=== PATIENT | male | born 1965 | race Caucasian/White ===

== ENCOUNTER 2018-11-24 09:10 | Outpatient (CLI) | payer OTHER ==
--- NOTE | 2018-11-24 09:47 | RAD ---
Lumbar spine: 4 views INDICATIONS: Intervertebral disc disorder with radiculopathy. FINDINGS: Moderate degenerative changes. Loss of disc space at L3-4, L4-5, and L5-S1. Prominent anter ior and lateral osteophytes. Posterior alignment is maintained. No spondylolisthesis. Moderate facet hypertrophy. There are 3 rounded calcific densities overlying the right upper quadrant consistent with gallstones. IMPRESSION: Moderate to severe degenerative changes. Evidence of cholelithiasis.
== END 2018-11-24 09:11 | disposition home or self-care (01) ==
LOC: RAD 09:10
PROVIDERS: ATTEND Specialist
DX: M51.16 Intervertebral disc disorders with radiculopathy, lumbar region (principal); K80.20 Calculus of gallbladder without cholecystitis without obstruction; M47.26 Other spondylosis with radiculopathy, lumbar region
CPT/HCPCS: 72100

== ENCOUNTER 2018-12-23 07:24 | Outpatient (CLI) | payer OTHER ==
--- NOTE | 2018-12-23 08:55 | RAD ---
SINGLE LEE VIEW OF SKULL: Date: 12/23/18 HISTORY: MRI clearance. Previous metal in eye. FINDINGS: Single Lee view of the skull shows no evidence of radiopaque foreign body. The visualized paranasa l sinuses are well aerated. IMPRESSION: No radiopaque foreign body identified. POS: [facility]
--- NOTE | 2018-12-23 10:16 | MRI ---
Exam: LUMBAR SPINE MRI WITH AND WITHOUT CONTRAST: HISTORY: Status post laminectomy. Laminectomy syndrome. Persistent low back pain with left hip and le g pain. Numbness. COMPARISON: None. FINDINGS: Appropriate T1 marrow signal intensity of lumbar vertebra. Lumbar spine vertebral body height is main tained. No fracture. Straightening of normal lumbar lordosis is noted. No significant STIR hyperintensity to suggest vertebral body edema or ligamentous injury. Appropriate signal intensity of visualized paraspinal muscles. Appropriate signal intensity of visual ized solid organs Conus medullaris terminates at the inferior aspect of T12. There are type II Modic changes at the L3-L4 and L4-L5 levels. Postcontrast images do not demonstrate any abnormal enhancement with regards to the vertebral bodies. There is no abnormal enhancement with regards to the cauda equina and conus medullaris. 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 T12-L1: Adequate disc hydration. Minimal ligamentum flavum thickening and facet atrophy. No significa nt central canal stenosis. Neural foramina are patent. L1-L2: Disc desiccation. No significant loss of disc space height. Left and right paracentral disc bu lges along with ligamentum flavum thickening result in mild central canal stenosis. Right neural foramen is patent. Mild left foraminal narrowing. L2-L3: Desiccation with mild loss of disc space height. Generalized disc bulge, ligamentum flavum thi ckening and facet hypertrophy do not cause any significant central canal stenosis. Mild encroachment upon both subarticular zones with disc material abutting but not obscuring either rhonda sing L3 nerve root. Mild bilateral foraminal narrowing. L3-L4: Desiccation with moderate loss of disc space height. There is a left hemilaminectomy defect. G eneralized disc bulge results in mild to moderate central canal stenosis. Mass effect without obscuration of bilateral traversing L4 nerve roots. Moderate to severe right and moderate left neural foraminal narrowing. L4-L5: Desiccation with severe loss of disc space height. There is an inferior central and left subar ticular disc protrusion. Left hemilaminectomy defect is identified. There is some enhancing scar tissue at the laminectomy defect site. There is asymmetric enhancement in the left subarticular zone. There is evidence of disc material with associated cystic degeneration in this left subarticular zone. There is complete obscuration of the traversing left L5 nerve root. Moderate right and moderate to severe left neural foraminal narrowing. L5-S1: Desiccation without significant loss of disc space height. No significant central canal stenos is. Disc material abuts but does not obscure the traversing right S1 nerve root. The left subarticular zone is unremarkable. Moderate right and mild to moderate left neural foraminal narrowin g. IMPRESSION: 1. Left hemilaminectomy defect at L3-L4 and L4-L5. Narrowing of both subarticular zones at L3-L4 with mass effect, without obscuration of bilateral traversing L4 nerve roots. 2. Left subarticular disc protrusion with slight inferior disc extrusion. There is a combination of d isc material, which has cystic degenerative change as well as scar tissue obscuring the traversing left L5 nerve root. 3. Multilevel neural foraminal narrowing as detailed above. Transcribed Date/Time: 12/23/2018 10:30 AM
== END 2018-12-23 07:25 | disposition home or self-care (01) ==
LOC: BICMRI 07:24
PROVIDERS: ATTEND Specialist
DX: M51.16 Intervertebral disc disorders with radiculopathy, lumbar region (principal); M96.1 Postlaminectomy syndrome, not elsewhere classified; M48.061 Spinal stenosis, lumbar region without neurogenic claudication; M48.07 Spinal stenosis, lumbosacral region; M48.05 Spinal stenosis, thoracolumbar region
CPT/HCPCS: 70210; 72158; 82565

== ENCOUNTER 2019-12-20 06:51 | Outpatient (CLI) | payer OTHER ==
[2019-12-20 14:54] LABS: Hemoglobin 14.8 g/dL (14.0-18.0); Mean Corpuscular HGB CONC 33.4 g/dL (32.0-36.0); Mean Corpuscular Hemoglobin 29.7 pg (27.0-31.0); Platelet Count 200 thou/uL (130-400); RBC Distribution Width 12.4 % (11.5-14.5); Red Blood Cell (RBC) Count 4.98 mill/uL (4.70-6.10); White Blood Cell (WBC) Count 6.3 thou/uL (4.8-10.8)
[2019-12-20 14:58] LABS: PTT 31.7 sec (22.9-36.1); Prothrombin Time 13.4 sec (12.0-14.7)
[2019-12-20 15:15] LABS: Anion Gap 14 mmol/L (10-20); BUN (Urea Nitrogen) 20 mg/dL (8.4-25.7); Calc. Creatinine Clearance 0 mL/min (70-130); Calcium 9.6 mg/dL (7.8-10.44); Carbon Dioxide 26 mmol/L (22-29); Chloride 103 mmol/L (98-107); Estimated GFR-MDRD 60; Glucose 88 mg/dL (70-105); Potassium 3.8 mmol/L (3.5-5.1); Sodium 139 mmol/L (136-145)
[2019-12-21 11:03] LABS: SARS-CoV-2 MS2 Positive; SARS-CoV-2 N Gene Negative; SARS-CoV-2 S Gene Negative; SARS-CoV-2 orf1ab Negative
== END 2019-12-20 06:52 | disposition home or self-care (01) ==
LOC: LABBT 06:51
PROVIDERS: ATTEND Surgery
DX: Z01.818 Encounter for other preprocedural examination (principal); Z11.59 Encounter for screening for other viral diseases
CPT/HCPCS: 80048; 85027; 85610; 85730; 87635; 93005; 93010; U0003

== ENCOUNTER 2019-12-22 06:00 | Day surgery (SDC) | payer OTHER ==
[2019-12-20 13:39] VITALS: BMI 42.2
[2019-12-22] MEDS ORDERED: Thrombin 5000 UNITS/5 ML VIAL ONE ×2 (06:46→09:51)
[2019-12-22] MEDS ORDERED: Fentanyl 250 MCG/5 ML VIAL ONE (07:01)
[2019-12-22] MEDS ORDERED: SUGAMMADEX SODIUM 500 MG/5 ML VIAL ONE (07:01)
[2019-12-22] MEDS ORDERED: Midazolam HCl 2 mg/2 ml Vial ONE (07:29)
[2019-12-22] MEDS ORDERED: Ondansetron HCl/PF 4 MG/2 ML Vial IVP PRN (09:45)
[2019-12-22] MEDS ORDERED: HYDROmorphone 2 MG/ML VIAL SLOW IVP PRN (09:45)
[2019-12-22] MEDS ORDERED: Morphine Sulfate 2 MG/ML SYRINGE SLOW IVP PRN (09:45)
[2019-12-22] MEDS ORDERED: Promethazine HCl 25 MG/ML VIAL SLOW IVP PRN (09:45)
[2019-12-22] MEDS ORDERED: PACU-Morphine 4MG/ML VIAL SLOW IVP PRN (09:45)
[2019-12-22] MEDS ORDERED: Promethazine HCl 25 MG/ML VIAL IM PRN (09:45)
[2019-12-22] MEDS ORDERED: Fentanyl 100 MCG/2 ML VIAL ONE ×3 (11:13→11:53)
[2019-12-22] MEDS ORDERED: Ondansetron PF 4 MG/2 ML Vial IVP PRN (11:16)
[2019-12-22] MEDS ORDERED: Acetaminophen 325 MG TAB PO PRN (11:16)
[2019-12-22] MEDS ORDERED: Mag-Al 1200 mg/1200 mg/30 ML UDCUP PO PRN (11:16)
[2019-12-22] MEDS ORDERED: Bisacodyl 10 MG SUPP PR PRN (11:16)
[2019-12-22] MEDS ORDERED: Milk Of Magnesia 30 ML UDCUP PO PRN (11:16)
[2019-12-22] MEDS ORDERED: traMADol HCl 50 MG TAB PO PRN (11:16)
[2019-12-22] MEDS ORDERED: tiZANidine HCl 4 MG TAB PO PRN (11:16)
[2019-12-22] MEDS ORDERED: Morphine 2 MG/ML SYRINGE SLOW IVP PRN (11:16)
[2019-12-22] MEDS ORDERED: Fleet Enema 133 ML BOT PR PRN (11:16)
[2019-12-22] MEDS ORDERED: Acetaminophen/Codeine 30-300mg Tablet PO PRN (11:16)
--- NOTE | 2019-12-22 11:23 | RAD ---
EXAM: XR Lumbar Spine 2 Or 3 View PROVIDED CLINICAL HISTORY: Determination of anatomical location intraoperatively. COMPARISON: None FINDINGS/IMPRESSION: Crosstable lateral views lumbar spine are provided. Initial image demonstrates a surgical measurement overlying the soft tissues posterior to the L3-4 level with second provided image demonstrating surgical instruments seen posterior to the L4 vertebral body and L3-4 level, and final image demonstr ates surgical instruments posterior to the lower lumbar spine extending from L3 to L5. Correlation with intraoperative findings is recommended. Multilevel osteophytes are seen in the visualized lumbar spine. Narrowing of the intervertebral disc spaces of the lower levels of the lumbar spine.
--- NOTE | 2019-12-22 11:32 | OP ---
DATE OF PROCEDURE: 12/22/2019 WING SCORER: Lupe Sainz PA-C. PREPROCEDURE DIAGNOSIS: L2 through L5 stenosis. POSTPROCEDURE DIAGNOSIS: L2 through L5 stenosis. PROCEDURES: 1. L2-L3 laminectomy, partial facetectomy, foraminotomies. 2. Bilateral L3 through L5 revision hemilaminotomy, foraminotomies, and left-sided diskectomies. 3. Use of operative microscope for microdissection. DESCRIPTION OF PROCEDURE: After informed consent was obtained from the patient, the patient was brought to the OR. Proper patient, pause, and identification were carried out. He was placed prone on the OR table. All appropriate points were padded. We identified the L2 through L5 dorsal spines and lamina. These areas were sterilely cleansed, prepared, and draped. The wound was then opened with combination of sharp, monopolar, and blunt dissection. The L2, L3, L4, L5 segments were exposed. Left L3-L4 and left L4-L5 scar tissue was identified. An L2-L3 laminectomy, partial facetectomy, foraminotomy was performed along with bilateral revision hemilaminotomy at L3-L4 and L4-L5. I worked over the shoulder with the use of the operative microscope with microdissection of the left L4 and left L5 nerve roots. Identified osteophytic disk material. There was no synovial cyst. Copious irrigation occurred throughout. We maximized hemostasis. The wound was then closed in anatomic layers following sprinkling of vancomycin powder. The patient emerged from anesthesia. Job ID: [id number]
[2019-12-22] MEDS ORDERED: Ketorolac Tromethamine 30 MG/ML VIAL ONE (11:42)
[2019-12-22] MEDS ORDERED: Rocuronium Bromide 10 MG/ML (10ML VIAL) ONE (11:42)
[2019-12-22] MEDS ORDERED: PHENYLEPHRINE-NS 100 MCG/ML 10 ML SYRINGE ONE (11:42)
[2019-12-22] MEDS ORDERED: Vecuronium 10 MG VIAL ONE (11:42)
[2019-12-22] MEDS ORDERED: Dexamethasone 20 MG/5 ML VIAL ONE (11:42)
[2019-12-22] MEDS ORDERED: EPHEDRINE 25 MG/5 ML SYRINGE ONE (11:42)
[2019-12-22] MEDS ORDERED: Lidocaine 1% PF 5 ML VIAL ONE ×2 (11:42)
[2019-12-22] MEDS ORDERED: PROPOFOL 200 MG/20 ML VIAL ONE (11:42)
[2019-12-22] MEDS ORDERED: Ondansetron PF 4 MG/2 ML Vial ONE (11:42)
[2019-12-22] MEDS: CEFAZOLIN 2 GM in Premix Bag 1 BAG IVPB SCH ×2 (13:04→21:20)
[2019-12-22] MEDS: Sodium Chloride 0.9% 1,000 ML IV SCH (13:05)
[2019-12-22] MEDS: HYDROcodone/Acetaminophen 7.5/325 mg Tablet PO PRN (13:10)
[2019-12-22] MEDS ORDERED: Lisinopril 20 MG TAB PO SCH (21:00)
[2019-12-23] MEDS: Carvedilol 25 MG TAB PO SCH ×2 (00:03→08:40)
[2019-12-23] MEDS: Sodium Chloride 0.9% 1,000 ML IV SCH ×2 (02:08→08:46)
[2019-12-23] MEDS: HYDROcodone/Acetaminophen 7.5/325 mg Tablet PO PRN ×2 (06:57→12:17)
[2019-12-23] MEDS ORDERED: Amlodipine 10 MG TAB PO SCH (09:00)
[2019-12-23] MEDS ORDERED: Hydrochlorothiazide 25 MG TAB PO SCH (09:00)
[2019-12-23] MEDS ORDERED: Fenofibrate Nanocrystallized 145 MG TAB PO SCH (09:00)
[2019-12-23 11:38] VITALS: BP 151/82; TEMP 98
--- NOTE | 2019-12-24 00:08 | DIS ---
DATE OF ADMISSION: 12/22/2019 DATE OF DISCHARGE: 12/23/2019 Mr. Monsalve was admitted by Dr. Arley Garnica on December 22, 2019; discharge date, December 23, 2019. ADMISSION DIAGNOSIS: Status post lumbar laminectomy. DISCHARGE DIAGNOSIS: Status post lumbar laminectomy. HOSPITAL COURSE: Mr. Monsalve was admitted to [facility] in the postoperative period after lumbar decompression. He tolerated this well, had minimal pain issues, mobilized early. No consultations were ordered. He was discharged home in good condition with outpatient followup planned in 2 weeks. Job ID: [id number]
== END 2019-12-23 14:18 | disposition home or self-care (01) ==
LOC: SDC 06:00 → SJJU 12:13 → SDC 12-23 14:18
PROVIDERS: ATTEND Surgery
PROC: 01NB0ZZ Release Lumbar Nerve, Open Approach (ICD-10-PCS; principal; 2019-12-22)
DX: M48.061 Spinal stenosis, lumbar region without neurogenic claudication (principal); M54.16 Radiculopathy, lumbar region; Z79.82 Long term (current) use of aspirin; Z79.899 Other long term (current) drug therapy
CPT/HCPCS: 72100; J0690; J1100; J1885; J2001; J2250; J2270; J2405; J2704; J3010; J3370